=== PATIENT | male | born 1980 | race Two or more races ===

== ENCOUNTER 2018-07-05 04:42 | Inpatient (IN) | payer OTHER ==
[~2018-07-05] VITALS: Ht 167.6 cm; Wt 95.8 kg
--- NOTE | 2018-07-05 05:05 | NUR ---
PATIENT BIB RA FROM HOME C/O EPIGASTRIC/ABDOMINAL PAIN X 7 HRS AFTER EATING PIZZA.DENIES NAUSEA OR VOMITING.REPORTED HAVING BM X 10 BUT NO DIARRHEA.VS STABLE. SAFETY MEASURES IMPLEMENTED.
[2018-07-05] MEDS ORDERED: FAMOTIDINE/PF INJ 20 MG/2 ML VIAL IV ONE ×2 (05:13→05:30)
[2018-07-05] MEDS ORDERED: ONDANSETRON HCL/PF 4 MG/2 ML VIAL ONE (05:13)
[2018-07-05] MEDS ORDERED: KETOROLAC TROMETHAMINE INJ 30 MG/ML VIAL ONE (05:25)
[2018-07-05 05:26] LABS: BASOPHILS # (AUTO) 0.1 /CMM (0.0-0.2); BASOPHILS % (AUTO) 0.6 % (0.0-2.0); EOSINOPHILS % (AUTO) 2.8 % (0.0-6.0); HEMATOCRIT 47 % (39-51); HEMOGLOBIN 15.7 g/dL (13.5-17.5); LYMPHOCYTES # (AUTO) 1.1 /CMM (0.8-4.8); LYMPHOCYTES % (AUTO) 6.9 % (20.0-44.0); MEAN CORPUSCULAR HGB CONC 33 g/dl (31.0-36.0); MEAN CORPUSCULAR VOLUME 88 fL (80-96); MONOCYTES # (AUTO) 0.9 /CMM (0.1-1.30); MONOCYTES % (AUTO) 5.2 % (2.0-12.0); NEUTROPHILS # (AUTO) 13.9 /CMM (1.8-8.9); NEUTROPHILS % (AUTO) 84.5 % (43.0-81.0); PLATELET COUNT (AUTO) 233 /CMM (150-450); RED BLOOD CELL COUNT(AUTO) 5.39 MIL/uL (4.5-6.0); WHITE BLOOD COUNT (AUTO) 16.4 K/uL (4.3-11.0)
[2018-07-05] MEDS ORDERED: KETOROLAC TROMETHAMINE INJ 30 MG/ML VIAL IV ONE (05:30)
[2018-07-05] MEDS ORDERED: IV NS 0.9% 1,000 ML BAG IV ONE ×2 (05:30→16:30)
[2018-07-05] MEDS ORDERED: ONDANSETRON HCL/PF 4 MG/2 ML VIAL IVP ONE (05:30)
[2018-07-05 05:31] LABS: CALCIUM, SERUM 8.5 mg/dL (8.5-10.1); CREATININE 0.7 mg/dL (0.6-1.3); POTASSIUM 3.5 mmol/L (3.5-5.1)
[2018-07-05 05:36] LABS: ALBUMIN 3.7 g/dL (3.4-5.0); BILIRUBIN,DIRECT 0.1 mg/dL (0.0-0.2); BILIRUBIN,TOTAL 0.4 mg/dL (0.2-1.0); TOTAL PROTEIN, SERUM 7.5 g/dL (6.4-8.2)
--- NOTE | 2018-07-05 05:39 | NUR ---
SALINE LOCK STARTED TO RIGHT AC BY ANIKTE BUNDY- IN CHRAGE AND BLOOD DRAWN SENT TO LAB. IVF NS INFUSING WELL.DUE MEDICATIONS ADMINISTERED.
--- NOTE | 2018-07-05 05:45 | NUR ---
PATIENT LEFT FOR CT VIA GURNEY IN STABLE CONDITION.
--- NOTE | 2018-07-05 05:55 | NUR ---
PATIENT BACK FROM CT IN STABLE CONDITION.
--- NOTE | 2018-07-05 06:08 | NUR ---
Dr. Flores on the phone with Dr. Rodríguez.
--- NOTE | 2018-07-05 06:15 | NUR ---
Dr. Flores speaking to Dr. Rodríguez (content writer surgery)
--- NOTE | 2018-07-05 06:19 | NUR ---
Dr. Black speaking to Dr. albino young regarding admission.
--- NOTE | 2018-07-05 06:20 | NUR ---
Nursing Farm Rancher called for Bed.
[2018-07-05] MEDS ORDERED: PIPERACILLIN /TAZOBACTAM 3.375 G in IV D5W 50 ML IV ONE (06:30)
--- NOTE | 2018-07-05 06:39 | NUR ---
PATIENT FOR TRANSFER TO [address] [place] [address] BED 1.PATIENT RESTING APPEARS COMFORTABLE. VERBALIZED PAIN RELEIVED.REPORT GIVEN TO TIMOTHY NARANJO RN FOR JOHN.
[2018-07-05] MEDS ORDERED: PIPERACILLIN /TAZOBACTAM 3.375 G VIAL IV ONE (06:44)
[2018-07-05] MEDS ORDERED: IV NS 0.9% 1,000 ML IV PRN (07:17)
[2018-07-05 07:30] VITALS: BP 108/69
[2018-07-05] MEDS ORDERED: Z GUARD REMEDY 2 OZ OINT TP PRN (07:30)
[2018-07-05] MEDS ORDERED: ACETAMINOPHEN 325 MG TABLET PO PRN (07:30)
[2018-07-05] MEDS ORDERED: ONDANSETRON HCL/PF 4 MG/2 ML VIAL IVP PRN (07:30)
--- NOTE | 2018-07-05 07:30 | NUR ---
RN OPENING NOTES RECEIVED PT. IN BED A&OX4. PT.'S , CULLEN WAS AT THE BEDSIDE. VITALS WNL. PT. IS BREATHING UNLABORED ON ROOM AIR. RIGHT AC GAUGE 18 IS INTACT AND PATENT WITH SALINE FLUSH. PT. WILL HAVE POSSIBLE SURGERY. BED IS IN LOWEST, AND VERN POSITION. 2 SIDE RAILS UP, AND INSTRUCTED PT. TO USE CALL LIGHT FOR ASSITANCE. ALL NEEDS MET. WILL CONTINUE TO ASSESS AND MONITOR.
[2018-07-05 08:30] VITALS: BP 108/69
--- NOTE | 2018-07-05 09:04 | NUR ---
pt. left room fro surgery laparoscopic appendectomy
[2018-07-05] MEDS ORDERED: BUPIVACAINE MPF W/EPI 0.25% 30 ML VIAL ONE (09:09)
[2018-07-05] MEDS ORDERED: HYDROMORPHONE INJ 2 MG/ML DISP.SYRIN ONE (09:37)
[2018-07-05] MEDS ORDERED: MIDAZOLAM HCL 2 MG/2ML VIAL ONE (09:37)
[2018-07-05] MEDS ORDERED: PROPOFOL 100 ML ONE (09:38)
[2018-07-05] MEDS ORDERED: ROCURONIUM BROMIDE 50 MG/5 ML ONE (09:38)
[2018-07-05] MEDS ORDERED: ZOLPIDEM TARTRATE 5 MG TABLET PO PRN (11:30)
[2018-07-05] MEDS ORDERED: Potassium Chloride 20 MEQ in IV D5 / 0.2% NACL 1,000 ML IV PRN (11:30)
--- NOTE | 2018-07-05 11:45 | NUR ---
PT. RETURNED BACK TO ROOM 313 BED 2 S/P LAPAROSCOPIC APPENDECTOMY. PT. HAS 3 ABDOMINAL SURGICAL DRESSINGS WITH GITA, THAT ARE CLEAN, AND DRY. VITALS WNL. PT. IS A&OX3, LETHARGIC POST ANAESTHESIA. POST OP ORDERS WERE FAXED BY OR NURSE. PT. WAS GIVEN DILAUDID 0.5 MG POST IN ROOM. BED IS IN LOWEST, AND LOCKED POSITION. 2 SIDE RAILS UP AND INSTRUCTED PT. TO USE CALL LIGHT FOR ASSISTANCE.
[2018-07-05] MEDS ORDERED: PIPERACILLIN /TAZOBACTAM 3.375 G in IV D5W 50 ML IV SCH (12:00)
[2018-07-05] MEDS: PIPERACILLIN /TAZOBACTAM 3.375 G in IV D5W 100 ML IV SCH ×2 (12:08→18:04)
[2018-07-05] MEDS: HYDROMORPHONE INJ 0.5 MG/0.5 ML SYRINGE IV PRN ×2 (12:11→14:46)
[2018-07-05] MEDS ORDERED: IV D5/0.45 NACL W/20 MEQ KCL 1L IV PRN ×2 (13:00)
[2018-07-05] MEDS: oxyCODONE/APAP (5/325 MG) 1 UDTAB TABLET PO PRN ×2 (13:35→19:38)
[2018-07-05 14:55] LABS: APPEARANCE,URINE TURBID (CLEAR); BILIRUBIN,URINE NEGATIVE (NEGATIVE); BLOOD, URINE NEGATIVE Ery/uL (NEGATIVE); COLOR,URINE YELLOW (YELLOW); KETONES,URINE TRACE (NEGATIVE); LEUKOCYTE ESTERASE ,URINE NEGATIVE (NEGATIVE); NITRITE, URINE NEGATIVE (NEGATIVE); PROTEIN,URINE NEGATIVE (NEGATIVE); UGLUCOSE NEGATIVE (NEGATIVE); UROBILINOGEN,URINE 0.2 EU/dL (0.2)
[2018-07-05 15:18] LABS: RBC,URINE NONE SEEN /HPF (0-2); SQUAMOUS EPITHELIAL CELL,UR Rare /HPF (None Seen); WBC,URINE 0-2 /HPF (0-3)
[2018-07-05 15:19] LABS: BACTERIA,URINE Few /HPF (None Seen); URINE AMORPHOUS URATE Many /HPF (None Seen)
[2018-07-05 16:00] VITALS: BP 114/68
--- NOTE | 2018-07-05 16:00 | NUR ---
POST OP VITALS WERE TAKEN Q15 MIN X 1 HR, Q3O MIN X 2 HOURS. AT 1330 PT.'S HEART RATE BECAME ELEVATED 113 BPM, AND SPO2 ON ROOM AIR SATURATION WAS LOWEST AT 90%. WILL FOLLOW UP WITH .
--- NOTE | 2018-07-05 16:30 | NUR ---
RN NOTES DISCUSSED WITH DR. LUZ VIA PHONE ABOUT PT.'S CONDITION. REPORTED PT.'S ELEVATED HR 120 -130- BPM, OXYGEN SPO2 DESATURATION TO 90 % ON ROOM AIR, AND THAT A NASAL CANNULA AT 2L/MIN WAS ADMINISTERED, AND THAT PT.'S TEMP. IS 99.6 F. PER NEW ORDERS GIVEN TO DO A CBC STAT LAB, AND ADMINISTER 500CC OF NORMAL SALINE BOLUS ONCE.
[2018-07-05] MEDS ORDERED: IV NS 0.9% 500 ML IV ONE (17:00)
[2018-07-05] MEDS ORDERED: IV NS 0.9% 1,000 ML IV ONE (17:00)
[2018-07-05 17:06] LABS: BASOPHILS # (AUTO) 0.1 /CMM (0.0-0.2); BASOPHILS % (AUTO) 0.4 % (0.0-2.0); EOSINOPHILS % (AUTO) 0.1 % (0.0-6.0); HEMATOCRIT 46 % (39-51); HEMOGLOBIN 15.5 g/dL (13.5-17.5); LYMPHOCYTES # (AUTO) 0.5 /CMM (0.8-4.8); LYMPHOCYTES % (AUTO) 3.1 % (20.0-44.0); MEAN CORPUSCULAR HGB CONC 33 g/dl (31.0-36.0); MEAN CORPUSCULAR VOLUME 88 fL (80-96); MONOCYTES # (AUTO) 0.8 /CMM (0.1-1.30); MONOCYTES % (AUTO) 5.2 % (2.0-12.0); NEUTROPHILS # (AUTO) 14.3 /CMM (1.8-8.9); NEUTROPHILS % (AUTO) 91.2 % (43.0-81.0); PLATELET COUNT (AUTO) 204 /CMM (150-450); RED BLOOD CELL COUNT(AUTO) 5.26 MIL/uL (4.5-6.0); WHITE BLOOD COUNT (AUTO) 15.7 K/uL (4.3-11.0)
--- NOTE | 2018-07-05 18:13 | NUR ---
RN NOTES FOLLOWED UP WITH DR. LUZ VIA PHONE ABOUT PT.'S CBC RESULTS, AND NOTIFIED PT.'S HR IS ELEVATED 120 BPM PER MD NO NEW ORDERS GIVEN.
--- NOTE | 2018-07-05 19:30 | NUR ---
MS RN OPENING NOTES Received patient sitting up in bed, alert, oriented x 4. Family at bedside. Breathing even and unlabored. On O2 2L via NC, saturating 96%. Patient c/o pain, 01/10, pain management measures initiated. Patient on continuous pulse ox, HR 117. Peripheral IV in place, currently running zosyn at 25mL/hr. Patient stable as endorsed by the morning RN. Will continue to monitor accordingly
--- NOTE | 2018-07-05 19:50 | NUR ---
RN CLOSING NOTES PT. IS SITTING UP IN BED A&OX4, WITH FAMILY AT BED SIDE. BREATHING UNLABORED ON OXYGEN AT 2L/MIN VIA NASAL CANNULA PRN, SPO2 96%, AND MONITORING PULSE OXYGEN AT BEDSIDE PER ORDERS. NO S/S OF ACUTE DISTRESS. IV ANTIBIOTICS RUNNING. PT. TOLERATED REGULAR DIET WELL. BED IS IN LOWEST, AND LOCKED POSITION. DVT PUMPS WORKING, AND PT. IS WEARING MICHELLE STOCKING THIGH LENGTH. PT.'S SURGICAL DRESSING IS INTACT, CLEAN, AND DRY. ALL NEEDS MET. ENDORSED REPORT TO NURSE.
[2018-07-05 20:00] VITALS: BP 117/71
[2018-07-06] MEDS: PIPERACILLIN /TAZOBACTAM 3.375 G in IV D5W 100 ML IV SCH ×2 (01:29→11:08)
[2018-07-06] MEDS: HYDROMORPHONE INJ 0.5 MG/0.5 ML SYRINGE IV PRN ×2 (03:16→08:40)
--- NOTE | 2018-07-06 03:18 | NUR ---
ANIKET NOTES Patient c/o pain an abdomen, 02/10. Dilaudid 0.5mg given as ordered. Will continue to monitor Addendum: 07/06/18 at 0429 by REGINALD MULLINS RN BP- 136/69, HR- 83
--- NOTE | 2018-07-06 07:00 | NUR ---
MS RN CLOSING NOTES Patient in bed, alert,oriented x 4. Mother at bedside. Breathing even and unlabored. Not in any distress. No complaints as of this time. Peripheral IV infusing at 60mL/hr. Patient has TEDS stockings on. DVT pumps in place. Continuous pulse in place, HR 114-118. Patient able to ambulate to the toilet with assist. All needs attended to. All due meds given as ordered. Endorsed JOHN to ANIKET Addison.
[2018-07-06 07:03] LABS: BASOPHILS % (AUTO) 0.3 % (0.0-2.0); HEMATOCRIT 41 % (39-51); HEMOGLOBIN 13.9 g/dL (13.5-17.5); LYMPHOCYTES # (AUTO) 1.1 /CMM (0.8-4.8); LYMPHOCYTES % (AUTO) 5.4 % (20.0-44.0); MEAN CORPUSCULAR HGB CONC 34 g/dl (31.0-36.0); MEAN CORPUSCULAR VOLUME 88 fL (80-96); MONOCYTES # (AUTO) 1.1 /CMM (0.1-1.30); MONOCYTES % (AUTO) 5.9 % (2.0-12.0); NEUTROPHILS # (AUTO) 17.1 /CMM (1.8-8.9); NEUTROPHILS % (AUTO) 88.4 % (43.0-81.0); PLATELET COUNT (AUTO) 188 /CMM (150-450); WHITE BLOOD COUNT (AUTO) 19.4 K/uL (4.3-11.0)
--- NOTE | 2018-07-06 07:18 | NUR ---
Patient in bed, alert,oriented x 4. Mother at bedside. Breathing even and unlabore. No complaints as of this time. Peripheral IV infusing at 60mL/hr. DVT pumps in place. HR 114-118. Patient able to ambulate with assist. Safety precautions in place, call light within reach. will continue to monitor
[2018-07-06 07:20] LABS: CALCIUM, SERUM 8.2 mg/dL (8.5-10.1); CREATININE 0.9 mg/dL (0.6-1.3); MAGNESIUM 1.7 mg/dL (1.8-2.4); POTASSIUM 3.3 mmol/L (3.5-5.1)
[2018-07-06 07:28] LABS: THYROID STIMULATING HORMONE 0.65 uIU/mL (0.358-3.74)
[2018-07-06 08:00] VITALS: BP 98/58
[2018-07-06] MEDS: Magnesium 1GM/D5W 100ML PREMIX 100 ML IV SCH ×2 (09:31→10:38)
[2018-07-06] MEDS ORDERED: AMOX-430 PO (11:26)
[2018-07-06] MEDS: oxyCODONE/APAP (5/325 MG) 1 UDTAB TABLET PO PRN (15:06)
--- NOTE | 2018-07-06 15:25 | NUR ---
Patient cleared by for d/c to home. Pt will have f/u appointment with dr. Rodríguez outpatient, information provided. D/c and educational information provided and given to patient including new prescriptions. Pt verbalized understanding. iv line removed, id wrist band removed.Pt accompanied by family members
== END 2018-07-06 15:20 | disposition home or self-care (01) | DRG 343 ==
LOC: ER 04:44 → MED 06:52
PROVIDERS: ADMIT Internal Medicine; ATTEND Internal Medicine
PROC: 0DTJ4ZZ Resection of Appendix, Percutaneous Endoscopic Approach (ICD-10-PCS; principal; 2018-07-05)
DX: K35.30 Acute appendicitis with localized peritonitis, without perforation or gangrene (principal); D72.829 Elevated white blood cell count, unspecified
CPT/HCPCS: 36415; 71045-TC; 80048-TC; 80061-TC; 80076-TC; 81000-TC; 83690-TC; 83735-TC; 84100-TC; 84443-TC; 85025-TC; 85610-TC; 86850-TC; 87081-TC; 88304-TC; G0378; J0690; J1100; J1170; J1885; J2250; J2405; J2543; J2704; J2710; J3475; J3480; J3490; J7030; J7060

== ENCOUNTER 2018-07-12 22:07 | Emergency (ER) | payer OTHER ==
[~2018-07-12] VITALS: Ht 170.2 cm; Wt 83.9 kg
[~2018-07-12 22:07] MED LIST: AMOX-430 PO
--- NOTE | 2018-07-12 22:25 | NUR ---
BIBFAMILY C/O PAIN/REDNESS/DRAINAGE AROUND INCISION FROM APPENDECTOMY X 1 WEEK AGO. NOTED GITA INTACT, SMALL DRAINAGE NOTED, REDNESS WAS NOTED. PT AFEBRILE. MILD ABD TENDERNESS NOTED. RR EVEN AND UNLABORED. NO S/S OF ACUTE DISTRESS NOTED.
[2018-07-12 22:43] LABS: BASOPHILS # (AUTO) 0.1 /CMM (0.0-0.2); BASOPHILS % (AUTO) 1.2 % (0.0-2.0); EOSINOPHILS % (AUTO) 5.2 % (0.0-6.0); HEMATOCRIT 44 % (39-51); HEMOGLOBIN 14.7 g/dL (13.5-17.5); LYMPHOCYTES # (AUTO) 1.6 /CMM (0.8-4.8); LYMPHOCYTES % (AUTO) 15.4 % (20.0-44.0); MEAN CORPUSCULAR HGB CONC 34 g/dl (31.0-36.0); MEAN CORPUSCULAR VOLUME 89 fL (80-96); MONOCYTES % (AUTO) 9.5 % (2.0-12.0); NEUTROPHILS # (AUTO) 7.3 /CMM (1.8-8.9); NEUTROPHILS % (AUTO) 68.7 % (43.0-81.0); PLATELET COUNT (AUTO) 351 /CMM (150-450); RED BLOOD CELL COUNT(AUTO) 4.93 MIL/uL (4.5-6.0); WHITE BLOOD COUNT (AUTO) 10.7 K/uL (4.3-11.0)
[2018-07-12 22:50] LABS: CALCIUM, SERUM 8.6 mg/dL (8.5-10.1)
[2018-07-12 22:56] LABS: ALBUMIN 3.1 g/dL (3.4-5.0); BILIRUBIN,TOTAL 0.2 mg/dL (0.2-1.0); TOTAL PROTEIN, SERUM 8.1 g/dL (6.4-8.2)
[2018-07-12] MEDS ORDERED: IOHEXOL-300 100 ML VIAL IV ONE (23:24)
[2018-07-12] MEDS ORDERED: IV NS 0.9% 250 ML IV ONE (23:25)
[2018-07-12] MEDS ORDERED: CT SWABBABLE VALVE TRANS SET 1 EA INFUS.SET MC ONE (23:25)
--- NOTE | 2018-07-13 01:45 | NUR ---
Patient discharged to home in stable condition. Written and verbal after care instructions given. Patient verbalizes understanding of instruction.IV removed. Catheter intact and site benign. Pressure and 4x4 applied to site. No bleeding noted.
[2018-07-13 01:48] VITALS: BP 120/74
== END 2018-07-13 01:49 | disposition home or self-care (01) ==
LOC: ER 22:11
DX: T81.40XA Infection following a procedure, unspecified, initial encounter (principal); Z90.89 Acquired absence of other organs; Z87.442 Personal history of urinary calculi; Z91.018 Allergy to other foods
CPT/HCPCS: 36415; 80048-TC; 80076-TC; 83690-TC; 85025-TC; A6402; J7050; Q9967

== ENCOUNTER 2018-08-23 01:06 | Emergency (ER) | payer OTHER ==
[~2018-08-23] VITALS: Ht 170.2 cm; Wt 83.9 kg
[2018-08-23 02:02] VITALS: BP 119/71
== END 2018-08-23 02:25 | disposition home or self-care (01) ==
LOC: ER 01:10
DX: Z48.01 Encounter for change or removal of surgical wound dressing (principal); Z90.89 Acquired absence of other organs; Z91.018 Allergy to other foods
CPT/HCPCS: Z7502

== ENCOUNTER 2018-08-25 19:45 | Emergency (ER) | payer OTHER ==
[~2018-08-25] VITALS: Ht 170.2 cm; Wt 83.9 kg
[2018-08-25 20:12] VITALS: BP 107/67
--- NOTE | 2018-08-25 21:28 | NUR ---
Patient discharged to home in stable condition. Written and verbal after care instructions given. Patient verbalizes understanding of instruction AND RX. PT REC'D AN EXCUSE FROM WORK UNTIL 08/27/18. PT AMBULATED OUT WITH A STEADY GAIT. VSS.
== END 2018-08-25 21:27 | disposition home or self-care (01) ==
LOC: ER 19:48
DX: T81.49XA Infection following a procedure, other surgical site, initial encounter (principal); L02.211 Cutaneous abscess of abdominal wall; Z90.89 Acquired absence of other organs; Z91.018 Allergy to other foods